=== PATIENT | male | born 1985 | race Caucasian/White ===

== ENCOUNTER 2021-11-04 11:26 | Emergency (ER) | payer OTHER, SELFPAY ==
[2021-11-04] MEDS ORDERED: Acetaminophen 500 MG TAB ONE (12:08)
[2021-11-04] MEDS ORDERED: Ibuprofen 200 MG TAB ONE ×2 (12:08→12:13)
[2021-11-04] MEDS ORDERED: Ventolin HFA Inhaler 60 PUFF INHALER ONE (12:19)
[2021-11-05 15:28] LABS: SARS-CoV-2 PCR by NAA DETECTED (NotDetected)
== END 2021-11-04 12:45 | disposition home or self-care (01) ==
LOC: CSHERS 11:26
DX: U07.1 COVID-19 (principal); F17.290 Nicotine dependence, other tobacco product, uncomplicated
CPT/HCPCS: 71045; U0003; U0005